=== PATIENT | male | born 1940 | race Caucasian/White ===

== ENCOUNTER 2019-04-20 14:39 | Emergency (ER) | payer MEDICARE, BC ==
[~2019-04-20] VITALS: Ht 170.2 cm; Wt 74.8 kg
[2019-04-20 15:28] LABS: *BILIRUBIN,URIN NEGATIVE (NEGATIVE); *BLOOD, URINE NEGATIVE (NEGATIVE); *CLARITY,URINE CLEAR (CLEAR); *COLOR,URINE STRAW (YELLOW); *KETONES,URINE NEGATIVE (NEGATIVE); *UROBILINOGEN,URINE 0.2 E.U./dl (NORMAL); LEUKOCYTE ESTERASE ,URINE NEGATIVE (NEGATIVE); NITRITE, URINE NEGATIVE (NEGATIVE); PH,URINE 6.5 (5.0-8.0); UGLUCOSE NEGATIVE (NEGATIVE)
[2019-04-20] MEDS ORDERED: IBUP-1953 PO (15:33)
--- NOTE | 2019-04-20 16:10 | NUR ---
DR ZENG SPOKE WITH PATIENT MADE AWARE OF TEST RESULTS WILL BE DC HOME.
--- NOTE | 2019-04-20 16:13 | NUR ---
Patient discharged to home in stable conditon. Written and verbal after care instructions given. Patient verbalizes understanding of instructions.
[2019-04-20 16:16] VITALS: BP 105/76
== END 2019-04-20 16:18 | disposition home or self-care (01) ==
LOC: ER 14:39
DX: N43.3 Hydrocele, unspecified (principal); Z79.1 Long term (current) use of non-steroidal anti-inflammatories (NSAID)
CPT/HCPCS: 76870; 87086; A4663

== ENCOUNTER 2019-06-05 21:57 | Emergency (ER) | payer MEDICARE, BC ==
[~2019-06-05] VITALS: Ht 170.2 cm; Wt 72.6 kg
[~2019-06-05 21:57] MED LIST: IBUP-1953 PO
--- NOTE | 2019-06-05 22:20 | NUR ---
Patient discharged to home in stable conditon. Written and verbal after care instructions given. Patient verbalizes understanding of instructions. Patient ambulated with stable gait.
[2019-06-05 22:21] VITALS: BP 135/73
== END 2019-06-05 22:21 | disposition home or self-care (01) ==
LOC: ER 22:01
DX: N45.1 Epididymitis (principal); Z90.89 Acquired absence of other organs; Z79.1 Long term (current) use of non-steroidal anti-inflammatories (NSAID)
CPT/HCPCS: A4663

== ENCOUNTER 2019-09-04 22:34 | Emergency (ER) | payer MEDICARE, BC ==
[~2019-09-04] VITALS: Ht 170.2 cm; Wt 72.6 kg
[2019-09-04 22:54] VITALS: BP 154/88
--- NOTE | 2019-09-04 22:54 | NUR ---
Patient discharged to home in stable condition. Written and verbal after care instructions given. Patient verbalizes understanding of instructions. Stressed follow up or return to ER for worsening s/s.
== END 2019-09-04 22:55 | disposition home or self-care (01) ==
LOC: ER 22:35
DX: N45.1 Epididymitis (principal)
CPT/HCPCS: A4663

== ENCOUNTER 2020-10-10 22:21 | Emergency (ER) | payer MEDICARE, BC ==
[~2020-10-10] VITALS: Ht 172.7 cm; Wt 74.8 kg
--- NOTE | 2020-10-10 23:18 | NUR ---
Dr. Watson at bedside, MSE in progress
[2020-10-10 23:47] LABS: *BILIRUBIN,URIN NEGATIVE (NEGATIVE); *CLARITY,URINE CLEAR (CLEAR); *COLOR,URINE YELLOW (YELLOW); *KETONES,URINE NEGATIVE (NEGATIVE); *UROBILINOGEN,URINE 0.2 E.U./dl (NORMAL); LEUKOCYTE ESTERASE ,URINE NEGATIVE (NEGATIVE); NITRITE, URINE NEGATIVE (NEGATIVE); UGLUCOSE NEGATIVE (NEGATIVE)
[2020-10-10 23:49] LABS: *BLOOD, URINE TRACE (NEGATIVE)
[2020-10-10 23:52] LABS: BACTERIA,URINE NONE SEEN /HPF (NONE SEEN); RBC,URINE 0-3 /HPF (0-3); SQUAMOUS EPITHELIAL CELL,UR FEW /HPF (NONE SEEN); WBC,URINE 0-3 /HPF (0-3)
--- NOTE | 2020-10-11 00:32 | NUR ---
Patient discharged to home in stable condition, no c/o pain or discomfort. A/O x4. Written and verbal after care instructions given. Patient verbalizes understanding of instructions. Stressed follow up or return to ER for worsening s/s. Steady gait.
[2020-10-11 00:33] VITALS: BP 136/62
== END 2020-10-11 00:33 | disposition home or self-care (01) ==
LOC: ER 22:22
DX: K40.90 Unilateral inguinal hernia, without obstruction or gangrene, not specified as recurrent (principal); R10.84 Generalized abdominal pain
CPT/HCPCS: A4663